=== PATIENT | male | born 1980 | race Caucasian/White ===

== ENCOUNTER 2018-08-10 16:27 | Outpatient (REF) | payer OTHER, SELFPAY ==
[2018-08-12 10:32] LABS: Hepatitis C Ab w Rflx HCV PCR Negative (NEGAT)
[2018-08-12 11:21] LABS: HIV-1/2 Ag & Ab Screen Negative (NEGAT)
[2018-08-12 11:33] LABS: Hepatitis B Surface Ag Negative (NEGAT)
[2018-08-12 12:37] LABS: Syphilis Serology (RPR) Negative (Negative)
== END 2018-08-10 16:47 ==
LOC: NCHCN 16:27
PROVIDERS: PCP Internal Medicine; Visit Provider Internal Medicine
DX: N34.2 Other urethritis (principal); Z11.4 Encounter for screening for human immunodeficiency virus [HIV]; Z11.59 Encounter for screening for other viral diseases
CPT/HCPCS: 86803; 87340; 87389; 86592

== ENCOUNTER 2018-08-11 07:16 | Outpatient (REF) | payer OTHER, SELFPAY ==
[2018-08-12 14:30] LABS: Chlamydia Result Negative; GC Result Negative; Specimen Description URINE
== END 2018-08-11 07:36 ==
LOC: NCHCN 07:16
PROVIDERS: PCP Internal Medicine; Visit Provider Internal Medicine
DX: N34.2 Other urethritis (principal); Z11.3 Encounter for screening for infections with a predominantly sexual mode of transmission
CPT/HCPCS: 87491; 87591

== ENCOUNTER 2019-01-12 19:15 | Outpatient (REF) | payer OTHER, SELFPAY ==
[2019-01-12 21:44] LABS: HCT 43.3 % (40.0-50.0); HGB 14.4 g/dL (13.5-17.5); Mean Corp. HGB Concentration 33.3 g/dL (32.0-36.0); Mean Corpuscular Hemoglobin 30.9 pg (27.0-33.0); Mean Corpuscular Volume 92.9 fL (80-95); Mean Platelet Volume 9.3 fL (8.0-11.0); Platelet Count 237 x1000/uL (130-400); RBC 4.66 m/cumm (4.50-6.00); RBC Distribution Width 12.6 % (11.8-14.1); White Blood Cell Count 6.44 k/cumm (4.4-10.8)
[2019-01-12 21:54] LABS: ALT 42 U/L (16-63); AST 28 U/L (15-37); Alkaline Phosphatase 63 U/L (46-116)
== END 2019-01-12 19:35 ==
LOC: NCHCN 19:15
PROVIDERS: PCP Internal Medicine; Visit Provider Nurse Practitioner Family
DX: R10.11 Right upper quadrant pain (principal)
CPT/HCPCS: 85027; 84075; 84450; 84460

== ENCOUNTER 2019-01-17 00:42 | Outpatient (CLI) | payer OTHER, SELFPAY ==
--- NOTE | 2019-01-17 07:00 | DI.US_ITS ---
SYMPTOM/DIAGNOSIS: RUQ ABD PAIN, R10.11 ABDOMEN ULTRASOUND: The aorta and vena cava are normal. The liver is intact. The gallbladder is unremarkable. There is no evidence of ductal dilatation. The pancreas is normal. The spleen appears intact. The left kidney measures 11.6 by 5.2 by 6.3 cm. The right kidney measures 11.3 by 4.9 by 5.4 cm. SUMMARY: Normal abdominal ultrasound.
== END 2019-01-17 01:02 ==
PROVIDERS: PCP Internal Medicine; Visit Provider Nurse Practitioner Family
DX: R10.11 Right upper quadrant pain (principal)
CPT/HCPCS: 76700

== ENCOUNTER 2024-12-02 02:25 | Outpatient (CLI) | payer MEDICAID, SELFPAY ==
[2024-12-02 08:21] LABS: HCT 44.3 % (40.0-50.0); HGB 14.9 g/dL (13.5-17.5); MCH 30.7 pg (27.0-33.0); MCHC 33.6 % (32.0-36.0); MCV 91 fL (80-95); MPV 8.4 fL (8.0-11.0); Platelet Count 237 10^3/uL (130-400); RBC 4.86 10^6/uL (4.36-5.78); RDW 12.3 % (11.8-14.1); RDW-SD 40.9 fL; WBC 4.69 10^3/uL (4.4-10.8)
[2024-12-02 09:13] LABS: ALT 34 U/L (16-63); AST 26 U/L (15-37); Albumin 3.8 g/dL (3.4-5.0); Alkaline Phosphatase 63 U/L (46-116); Anion Gap 6.5 mmol/L (3-11); BUN 12 mg/dL (7-18); Bilirubin, Total 0.8 mg/dL (0.2-1.0); CO2 31.5 mmol/L (21.0-32.0); Calcium 9.1 mg/dL (8.5-10.1); Calculated LDL 125 mg/dL (<100); Chloride 104 mmol/L (98-107); Cholesterol 192 mg/dL (<200); Estimated GFR 111.22 (mL/min/1.73m2); Glucose 108 mg/dL (74-106); HDL Cholesterol 59 mg/dL (>or=40); Potassium 3.9 mmol/L (3.5-5.1); Sodium 142 mmol/L (136-145); TSH (W/Ref FT4) 1.59 uIU/mL (0.36-3.74); Total Protein 6.6 g/dL (6.4-8.2); Triglyceride 44 mg/dL (<150)
== END 2024-12-02 02:26 | disposition home or self-care (01) ==
PROVIDERS: PCP Nurse Practitioner Family; Visit Provider Nurse Practitioner Family
DX: Z00.00 Encounter for general adult medical examination without abnormal findings (principal); R53.83 Other fatigue
CPT/HCPCS: 36415; 80053; 80061; 84403; 85027; 84443